=== PATIENT | male | born 1935 | race Caucasian/White ===

== ENCOUNTER 2019-03-21 15:08 | Emergency (ER) | payer OTHER ==
[~2019-03-21] VITALS: Ht 165.1 cm; Wt 56.2 kg
[~2019-03-21 15:08] MED LIST: ACET500; ACET500 PO; AMOCLA875 PO; ASPI325; ASPI325 PO; ATOR10; ATOR10 PO; CETI5 PO; DIFLUCAN PO; FAMO10; FEXO180; HYDACE10B; HYDACE10B PO; IPRAOI INH; LATA.005SO; LATA.005SO BOTHEYES; LATA.005SO OD; LEVO750 PO; LISI20; LISI5 PO; MELO7.5 PO; METO25ER PO; METO50ER; METPRE4DP PO; Norco 10-325 T1 EACH PO; OMEP10ER PO
== END 2019-03-21 16:05 | disposition home or self-care (01) ==
LOC: ER 15:08
DX: M25.511 Pain in right shoulder (principal); I10 Essential (primary) hypertension; E78.00 Pure hypercholesterolemia, unspecified; K21.9 Gastro-esophageal reflux disease without esophagitis; Z87.891 Personal history of nicotine dependence; Z88.5 Allergy status to narcotic agent; Z88.8 Allergy status to other drugs, medicaments and biological substances; Z79.899 Other long term (current) drug therapy; Z79.82 Long term (current) use of aspirin; Z79.52 Long term (current) use of systemic steroids
CPT/HCPCS: 96372; 99283-25; J3301

== ENCOUNTER 2019-11-26 17:16 | Emergency (ER) | payer OTHER, SELFPAY ==
[~2019-11-26] VITALS: Ht 162.6 cm; Wt 55.8 kg
[2019-11-26 18:27] LABS: BASOPHILS ABSOLUTE AUTO 0.06 K/mm3 (0.00-0.23); BASOPHILS PERCENT AUTO 0 % (0-2); EOSINOPHILS ABSOLUTE AUTO 0.12 K/mm3 (0.00-0.68); EOSINOPHILS PERCENT AUTO 1 % (0-6); Hematocrit 37.2 % (37.0-53.0); Hemoglobin 11.9 g/dL (13.5-17.5); IMMATURE GRAN ABSOLUTE AUTO 0.08 K/mm3 (0.00-0.10); IMMATURE GRAN PERCENT AUTO 1 % (0-1); LYMPHOCYTES ABSOLUTE AUTO 0.99 K/mm3 (0.84-5.20); LYMPHOCYTES PERCENT AUTO 6 % (21-46); MONOCYTES ABSOLUTE AUTO 1.47 K/mm3 (0.16-1.47); MONOCYTES PERCENT AUTO 9 % (4-13); Mean Corpuscular HGB 30.1 pg (26.0-34.0); Mean Corpuscular Volume 94 fL (80-100); NEUTROPHILS ABSOLUTE AUTO 13.93 K/mm3 (1.96-9.15); NEUTROPHILS PERCENT AUTO 84 % (41-73); Platelet Count 337 K/mm3 (150-400); RDW Coefficient Variation 13.4 % (11.7-14.2); RDW Standard Deviation 46.7 fL (35.1-46.3); Red Blood Cell Count 3.96 M/mm3 (4.30-5.90); White Blood Cell Count 16.65 K/mm3 (4.00-11.30)
[2019-11-26 18:58] LABS: Alanine Aminotransfer (ALT/SGP 21 U/L (12-78); Albumin, Blood 2.5 g/dL (3.4-5.0); Albumin/Globulin Ratio 0.5 (0.8-1.8); Alk Phos 91 U/L (50-136); Anion Gap 11 mmol/L (6-16); Aspartate Aminotrans (AST/SGOT 29 U/L (12-37); Bilirubin, Total 0.6 mg/dL (0.1-1.0); Blood Urea Nitrogen 33 mg/dL (8-24); Bun/Creatinine Ratio 28.9 (12.0-20.0); CO2, Blood 24 mmol/L (21-32); Calcium, Blood 8.9 mg/dL (8.5-10.1); Chloride, Blood 99 mmol/L (98-108); Creatinine, Blood 1.14 mg/dL (0.60-1.20); Globulin, Blood 5.4 g/dL (2.2-4.0); Glomerular Filtration Rate >60 (60-); Glucose, Blood 121 mg/dL (70-99); Potassium, Blood 3.9 mmol/L (3.5-5.5); Sodium, Blood 134 mmol/L (136-145); Total Protein, Blood 7.9 g/dL (6.4-8.2)
[2019-11-26] MEDS ORDERED: LEVO750 PO (22:31)
[2019-11-26 22:40] LABS: Adenovirus Not Detected (NOT DETECT); Bordetella pertussis Not Detected (NOT DETECT); Chlamydophila pneumoniae Not Detected (NOT DETECT); Coronavirus 229E Not Detected (NOT DETECT); Coronavirus HKU1 Not Detected (NOT DETECT); Coronavirus NL63 Not Detected (NOT DETECT); Coronavirus OC43 Not Detected (NOT DETECT); Human Metapneumovirus Not Detected (NOT DETECT); Human Rhinovirus/Enterovirus Not Detected (NOT DETECT); Influenza A/2009-H1 Not Detected (NOT DETECT); Influenza A/H1 Not Detected (NOT DETECT); Influenza A/H3 Not Detected (NOT DETECT); Influenza B Not Detected (NOT DETECT); Mycoplasma pneumoniae Not Detected (NOT DETECT); Parainfluenza Virus 1 Not Detected (NOT DETECT); Parainfluenza Virus 2 Not Detected (NOT DETECT); Parainfluenza Virus 3 Not Detected (NOT DETECT); Parainfluenza Virus 4 Not Detected (NOT DETECT); Respiratory Syncytial Virus Not Detected (NOT DETECT)
== END 2019-11-26 22:45 | disposition home or self-care (01) ==
LOC: ER 17:16
PROVIDERS: Emergency Medicine; Physician Assistant
DX: A41.9 Sepsis, unspecified organism (principal); J18.9 Pneumonia, unspecified organism; I10 Essential (primary) hypertension; K21.9 Gastro-esophageal reflux disease without esophagitis; Z88.8 Allergy status to other drugs, medicaments and biological substances; Z88.5 Allergy status to narcotic agent; Z79.899 Other long term (current) drug therapy; Z79.82 Long term (current) use of aspirin; Z87.891 Personal history of nicotine dependence
CPT/HCPCS: 0099U; 36415; 71046; 80053; 84145; 85025; 93005; 93010; 96365; 96366; 96368; 99284-25; J0456; J0696; J7050

== ENCOUNTER 2022-06-25 17:59 | Inpatient (IN) | payer OTHER ==
[~2022-06-25] VITALS: Ht 165.1 cm; Wt 54.4 kg
[~2022-06-25 17:59] MED LIST changes: -OMEP10ER PO; +OMEP20ER PO
[2022-06-25 19:27] LABS: BASOPHILS ABSOLUTE AUTO 0.07 K/mm3 (0.00-0.23); BASOPHILS PERCENT AUTO 1 % (0-2); EOSINOPHILS PERCENT AUTO 2 % (0-6); Hematocrit 36.9 % (37.0-53.0); Hemoglobin 12.1 g/dL (13.5-17.5); IMMATURE GRAN ABSOLUTE AUTO 0.07 K/mm3 (0.00-0.10); IMMATURE GRAN PERCENT AUTO 1 % (0-1); LYMPHOCYTES ABSOLUTE AUTO 1.09 K/mm3 (0.84-5.20); LYMPHOCYTES PERCENT AUTO 10 % (21-46); MONOCYTES ABSOLUTE AUTO 0.89 K/mm3 (0.16-1.47); MONOCYTES PERCENT AUTO 8 % (4-13); Mean Corpuscular HGB 30.6 pg (26.0-34.0); Mean Corpuscular HGB Conc 32.8 g/dL (31.5-36.5); Mean Corpuscular Volume 93 fL (80-100); Mean Platelet Volume 9.6 fL (9.1-12.4); NEUTROPHILS ABSOLUTE AUTO 8.36 K/mm3 (1.96-9.15); NEUTROPHILS PERCENT AUTO 78 % (41-73); Platelet Count 190 K/mm3 (150-400); RDW Coefficient Variation 12.3 % (11.7-14.2); RDW Standard Deviation 42.6 fL (35.1-46.3); Red Blood Cell Count 3.95 M/mm3 (4.30-5.90); White Blood Cell Count 10.68 K/mm3 (4.00-11.30)
[2022-06-25 19:56] LABS: Albumin, Blood 3.5 g/dL (3.4-5.0); Albumin/Globulin Ratio 1.2 (0.8-1.8); Bilirubin, Total 0.5 mg/dL (0.1-1.0); Bun/Creatinine Ratio 26.7 (12.0-20.0); Calcium, Blood 8.4 mg/dL (8.5-10.1); Creatinine, Blood 1.16 mg/dL (0.60-1.20); Potassium, Blood 4.2 mmol/L (3.5-5.5); Total Protein, Blood 6.5 g/dL (6.4-8.2)
[2022-06-26] MEDS ORDERED: LISI20 PO (09:09)
[2022-06-26] MEDS ORDERED: METO50ER PO (09:09)
[2022-06-26] MEDS ORDERED: ATOR10 PO (09:10)
[2022-06-26] MEDS ORDERED: TIOT18 INH (09:11)
[2022-06-26] MEDS ORDERED: HYDCOR2.5C PR (09:11)
[2022-06-26] MEDS ORDERED: MONT10T PO (09:11)
[2022-06-26] MEDS ORDERED: CLOBETASOL EMOL15 G1 (09:11)
--- NOTE | 2022-06-26 18:01 | NUR ---
"Spiritual Care | Pt. Request Pt. is awake in bed and welcomes my visit. Family members are present. Pt. is most pleasant. Rapport is quickly established. Pt. displays evidence of engagement and awareness. Prayed with Pt. Pt. verbalizedgratitude for the spiritual care visit and requested I visit him in the morning."
--- NOTE | 2022-06-26 18:27 | NUR ---
SHIFT SUMMARY PT HAS DONE WELL SINCE ADMIT. WORKED w/ PT & OT WHICH CAUSED AN INCREASE IN PAIN & BREAKTHRU IV MEDS REQUIRED. PLEASANT & COOPERATIVE. EATING, DRINKING, & VOIDING.
[2022-06-27 05:25] LABS: Hematocrit 31.9 % (37.0-53.0); Hemoglobin 10.7 g/dL (13.5-17.5); Mean Corpuscular HGB 30.7 pg (26.0-34.0); Mean Corpuscular HGB Conc 33.5 g/dL (31.5-36.5); Mean Corpuscular Volume 92 fL (80-100); Mean Platelet Volume 10.2 fL (9.1-12.4); Platelet Count 171 K/mm3 (150-400); RDW Coefficient Variation 12.8 % (11.7-14.2); RDW Standard Deviation 42.7 fL (35.1-46.3); Red Blood Cell Count 3.48 M/mm3 (4.30-5.90); White Blood Cell Count 8.42 K/mm3 (4.00-11.30)
--- NOTE | 2022-06-27 05:41 | NUR ---
SHIFT SUMMARY: A&0X4. PT VERY PLEASANT. EATING, DRINKING, VOIDING AT THIS TIME. PAIN WELL MANAGED PER EMAR ORDERS AND UNINTERRUPTED REST. REMAINS ON 1.5 L OF 02 AT THIS TIME TO KEEP 02% ABOVE 90% DURING THE NIGHT. PT CONTINUES TO HAVE PAIN WITH COUGHING OR DEEP INSPIRATION DUE TO STERNUM FX. ENCOURAGED TO USE IS IN ROOM. NO ACUTE CHANGES NOTED, VITAL SIGNS REMAINED STABLE. PT RESTING WITH CALL LIGHT IN REACH.
--- NOTE | 2022-06-27 18:32 | NUR ---
SHIFT SUMMARY PT A&OX4, VSS/RA, CLAUDE PO, VOIDING, AMBULATING W/FWW TO BRP/HALLWAY, UP TO CHAIR FOR MEALS, PAIN MANAGED WITH NORCO 15 MG. WILL REPORT TO ONCOMING NOC RN.
--- NOTE | 2022-06-28 05:52 | NUR ---
SHIFT SUMMARY: A&0X4. VERY PLEASANT AND COOPERATIVE. NO ACUTE CHANGES THIS SHIFT. AMBULATING WELL TO USE BATHROOM. PAIN WELL MANAGED PER EMAR ORDERS. 2L 02 VIA NC WORN T/O THE NIGHT TO KEEP 02 SATURATION ABOVE 90%. PT GOT UP AND SAT IN THE CHAIR, TOLERATED WELL. RESTING AT THIS TIME WITH CALL LIGHT IN REACH. PLANS TO DICHARGE TODAY. WILL GIVE REPORT TO DAY SHIFT RN.
--- NOTE | 2022-06-28 17:02 | NUR ---
DISCHARGE SUMMARY PT A&OX4, VSS/RA, CLAUDE PO, VOIDING, AMB SBA FWW TO BRP/HALLWAY/BED/CHAIR, PAIN MANAGED WELL, IV DC'D. RONNELLJENSEN BROUGHT PORT O2 AND FWW AND MADE ARRANGEMENTS WITH SHANNON TO MEET AT THE HOME - SHANNON WILL CALL [facility] WHEN THEY LEAVE HERE AND THEY WILL MEET AT THE RESIDENCE WITH THE HOME OXYGEN AND SHOWER CHAIR. DC INS PROVIDED. PT AND FAMILY REP UNDERSTANDING DC INS & THEY WILL FU WITH DR GUY AND DR GUY WILL MANAGE PAIN MEDICATION. LEFT FLOOR VIA WC WITH BRAKE LINING FINISHER TO GO HOME WITH FAMILY, WITH ALL PERSONAL POSSESSIONS INCLUDING PORT O2, FWW, EXTRA OXYGEN LINE FOR HOME OXYGEN.
== END 2022-06-28 17:12 | disposition home or self-care (01) | DRG 184 ==
LOC: ER 17:59 → SURS 23:21 → ERHOLD 23:21 → SURS 06-26 11:59
PROVIDERS: Emergency Medicine; Surgery; ADMIT Surgery
DX: S22.41XA Multiple fractures of ribs, right side, initial encounter for closed fracture (principal); S22.22XA Fracture of body of sternum, initial encounter for closed fracture; S41.112A Laceration without foreign body of left upper arm, initial encounter; S20.211A Contusion of right front wall of thorax, initial encounter; Z66 Do not resuscitate; I10 Essential (primary) hypertension; K21.9 Gastro-esophageal reflux disease without esophagitis; E78.00 Pure hypercholesterolemia, unspecified; J44.9 Chronic obstructive pulmonary disease, unspecified; M54.9 Dorsalgia, unspecified; G89.29 Other chronic pain; F10.10 Alcohol abuse, uncomplicated; S20.219A Contusion of unspecified front wall of thorax, initial encounter; Z88.8 Allergy status to other drugs, medicaments and biological substances; Z87.891 Personal history of nicotine dependence; Z98.890 Other specified postprocedural states; V49.40XA Driver injured in collision with unspecified motor vehicles in traffic accident, initial encounter; Z88.5 Allergy status to narcotic agent; Z95.5 Presence of coronary angioplasty implant and graft; Z79.899 Other long term (current) drug therapy; I25.2 Old myocardial infarction; Z79.82 Long term (current) use of aspirin; Z79.02 Long term (current) use of antithrombotics/antiplatelets; Z79.891 Long term (current) use of opiate analgesic; Z79.51 Long term (current) use of inhaled steroids; Z79.811 Long term (current) use of aromatase inhibitors
CPT/HCPCS: 36415; 70450; 71046; 71260; 72125; 74177; 80053; 84484; 85025; 85027; 93005; 93010; 94640; 94761; 94762; 96374-59; 96375-59; 96376-59; 97110; 97116; 97162; 97165; 97530; 97535; 99285-25; A9270; J1170; J1650; J1885; Q9967